=== PATIENT | female | born 1955 ===

== ENCOUNTER 2024-05-26 14:08 | Emergency (ER) | payer BC, MEDICARE ==
[~2024-05-26] VITALS: Ht 157.5 cm; Wt 63.5 kg
[2024-05-26 15:05] VITALS: BP 144/62; PULSE 60; RESP 20; TEMP 98.3; O2SAT 99
[2024-05-26] MEDS: ketOROlac 60 MG VIAL (30MG/ML) IM ONE (15:10)
[2024-05-26] MEDS ORDERED: NAPR-1196 PO (15:30)
== END 2024-05-26 16:38 | disposition home or self-care (01) ==
LOC: EDH 14:08
DX: S52.592A Other fractures of lower end of left radius, initial encounter for closed fracture (principal); S52.612A Displaced fracture of left ulna styloid process, initial encounter for closed fracture; I10 Essential (primary) hypertension; M19.90 Unspecified osteoarthritis, unspecified site; Z90.49 Acquired absence of other specified parts of digestive tract; W18.39XA Other fall on same level, initial encounter; Y93.89 Activity, other specified; Y92.89 Other specified places as the place of occurrence of the external cause; Y99.8 Other external cause status
CPT/HCPCS: 29125; 73090; 73110